=== PATIENT | female | born 1945 | race Caucasian/White ===

== ENCOUNTER 2020-11-20 15:00 | Emergency (ER) | payer OTHER ==
[2020-11-20] MEDS ORDERED: DIPHTH,PERTUSS(ACELL),TET 0.5 ML DISP.SYRIN IM ONE ×3 (15:17→15:44)
[2020-11-20] MEDS ORDERED: ACETAMINOPHEN 500 MG TABLET (FP) PO ONE ×2 (15:17→15:22)
[2020-11-20 15:24] VITALS: BP 157/84; PULSE 73; TEMP 98.9
[2020-11-20] MEDS ORDERED: ACETAMINOPHEN 500 MG TABLET (FP) ONE (15:35)
== END 2020-11-20 18:19 | disposition home or self-care (01) ==
LOC: FER 15:00
PROC: 2W3CX1Z Immobilization of Right Lower Arm using Splint (ICD-10-PCS; principal; 2020-11-20)
PROC: 3E0234Z Introduction of Serum, Toxoid and Vaccine into Muscle, Percutaneous Approach (ICD-10-PCS; 2020-11-20)
DX: S61.511A Laceration without foreign body of right wrist, initial encounter (principal); S69.91XA Unspecified injury of right wrist, hand and finger(s), initial encounter; M54.5 Low back pain
CPT/HCPCS: 72125-TC; 73110-TC-RT-FY; 90715; 99284-25